=== PATIENT | male | born 1985 | race Caucasian/White ===

== ENCOUNTER 2016-09-06 14:46 | Emergency (ER) | payer MEDICAID ==
--- NOTE | ~2016-09-06 | EKG ---
PATIENT: DAMIÁN CRANE UNIT #: [id number] Ventricular Rate: 51 BPM Atrial Rate: 51 BPM P-R Interval: 138 ms QRS Duration: 94 ms Q-T Interval: 412 ms QTC Calculation(Bezet): 379 ms P [place]: 42 degrees Calculated R [place]: 95 degrees Calculated T [place]: 63 degrees Diagnosis Line: Sinus bradycardia with sinus arrhythmia Diagnosis Line: Rightward axis Diagnosis Line: Borderline ECG Diagnosis Line: When compared with ECG of 29-JUN-2015 21:07, Diagnosis Line: No significant change was found Diagnosis Line: Confirmed by WESLY MARTINEZ MD ([id number]) on Diagnosis Line: 09/06/2016 3:52:06 PM INTERPRETING MD: MICHELLE SINGLETARY
--- NOTE | ~2016-09-06 | CT2 ---
[facility] A Service of [facility] & [facility] RADIOLOGY TEXT RESULTS PATIENT: DAMIÁN CRANE LOCATION: [facility] : 85 UNIT #: [id number] AGE: [address]: Jayleen Carey MD SEX: M ORDER DR: [id number] [facility] [address] [place], [place] [address] [id number] MR#: [id number] Acc #: [id number] NAME: DAMIÁN CRANE : 1985 SEX: M STUDY DATE/TIME: 09/06/2016 20:10 UNIT: [facility] ROOM: STUDY DESCRIPTION: CT Abd and Pelv W Cont Attending Physician: Jayleen Carey M.D. Ordering Physician: Jayleen Carey M.D. Primary Care Physician: Juan Miguel Erickson M.D. MEDICAL IMAGING REPORT This report is preliminary unless electronic signature is present EXAM CT of the abdomen and pelvis with contrast INDICATIONS Abdominal pain, nausea and diarrhea for 2 days; the pain is located in the mid abdomen and in the right side of the abdomen. TECHNIQUE Axial CT images were obtained from the dome of the diaphragm through the symphysis pubis. This was following the administration of intravenous contrast material only. This CT exam was performed with one or more of the following radiation dose reduction techniques: Automatic exposure control, adjustment of mA and/or kV according to patient size, and iterative reconstruction. FINDINGS Images through the lung bases are clear. Spleen is enlarged measuring up to 14.2 cm. There is a small hiatal hernia. Proximal small bowel appears unremarkable, as are the adrenal glands and pancreas. Gallbladder is normal in appearance. No focal hepatic lesions are seen. The appendix is visualized and is within normal limits. Prostate gland and urinary bladder appear unremarkable. There is some colonic diverticulosis; I do not see any convincing evidence of diverticulitis. There is no convincing evidence of mechanical bowel obstruction. Review of bony windows does not demonstrate any aggressive osseous abnormalities. IMPRESSION 1. No definite acute intraabdominal or intrapelvic process is identified. There is no evidence of mechanical bowel obstruction. Patient does have splenomegaly, but this is unchanged when compared to the exam from June 30, 2015. Patient is noted to have a small STS. [facility] A Service of [facility] & [facility] RADIOLOGY TEXT RESULTS PATIENT: DAMIÁN CRANE [id number] 85 UNIT #: [id number] AGE: [address]: Jayleen Carey MD SEX: M ORDER DR: hiatal hernia. The appendix is visualized and is within normal limits. 2. Patient does have some mild colonic diverticulosis without any evidence of diverticulitis. Dictated by... Delilah Gibbons M.D. THIS IS AN ELECTRONICALLY VERIFIED REPORT Delilah Gibbons M.D. at 09/07/2016 10:59 AM AFF/psc TD: 09/07/2016 04:16 JOB #: [id number] MEDICAL IMAGING REPORT Page 1 of 1 COPY
[~2016-09-06 14:46] MED LIST: AMOXICILLIN PO; LORTAB 7.5-3251 EACH PO; NEURONTIN300 MG PO; NEURONTIN600 MG PO; PROTONIX PO; VOLTAREN75 MG PO
[2016-09-06 15:15] LABS: BASOPHIL# 0.1 X10e3 (0-0.3); BASOPHIL% 0.5 % (0-2.5); DIFF IND NO; EOSINOPHIL% 0.2 % (0.0-7.0); HEMATOCRIT 48.1 % (38.0-50.0); LYMPHOCYTE# 2.2 X10e3 (1.0-3.5); LYMPHOCYTE% 21.4 % (17.0-45.0); MEAN CELL VOLUME 86.2 FL (83-96); MEAN CORPUSCULAR HEMOGLOBIN 28.7 PG (28-34); MEAN CORPUSCULAR HGB CONC 33.3 g/dL (30-36); MEAN PLATELET VOLUME 8.1 FL (6.5-11.5); MONOCYTE# 0.7 X10e3 (0-1.0); MONOCYTE% 6.5 % (3.0-12.0); NEUTROPHIL# 7.5 X10e3 (1.5-7.1); NEUTROPHIL% 71.4 % (40-75); PLATELET COUNT 268 X10e3 (140-420); RED BLOOD COUNT 5.57 X10e (3.90-5.60); RED CELL DISTRIBUTION WIDTH 12.8 % (11.0-15.5); WHITE BLOOD COUNT 10.5 X10e3 (4.0-10.5)
[2016-09-06 15:36] LABS: ALBUMIN SERUM 4.6 g/dL (3.5-5.0); BILIRUBIN, DIRECT 0.1 mg/dL (0.0-0.2); BILIRUBIN,INDIRECT 0.8 mg/dL (0.0-0.9); BILIRUBIN,TOTAL 0.9 mg/dL (0.2-2.0); BUN/CREATININE RATIO 15.55; CALCIUM SERUM 9.6 mg/dL (8.4-10.2); CREATININE SERUM 0.9 mg/dL (0.6-1.4); GLOM FILT RATE Estimated 113.4 mL/min (>60); POTASSIUM 3.7 mmol/L (3.5-5.1); PROTEIN TOTAL SERUM 8.4 g/dL (6.0-8.3)
== END 2016-09-07 02:00 | disposition home or self-care (01) ==
LOC: CED 14:46
DX: R11.2 Nausea with vomiting, unspecified (principal); F17.210 Nicotine dependence, cigarettes, uncomplicated; Z88.7 Allergy status to serum and vaccine
CPT/HCPCS: 36415; 74177; 80048; 80076; 83690; 85025; 93005; 96361; 96374; 96375; 96376; 99284; J1885; J2270; J2405; J2550; Q9967